=== PATIENT | female | born 1975 | race Two or more races ===

== ENCOUNTER → 2016-06-03 | Outpatient (CLI) | payer MEDICARE, OTHER ==
[~2016-06-03] MED LIST: ABILIFY10 MG ORAL; ABILIFY2 MG ORAL; CLOTRIMAZOLE15 GM TOPIC; IRON325 M2 PO; LEXAPRO10 MG ORAL; LEXAPRO5 MG ORAL; NKM
--- NOTE | 2016-06-03 13:51 | GI Initial Consult Note ---
History of Present Illness General Date patient seen: Jun 03, 2016 Time patient seen: 13:00 Referring physician: WOJCIECH HERMOSILLO Reason for Consultation: GERD EVALUATION Present Illness HPI 41 year old female patient referred to [facility] by Dr. Hermosillo for evaluation of atypical CP, PVD vs gastritis. Pt presents today with epigastric/substernal pain. No GI complaints at this time. Home Meds Active Scripts Clotrimazole* (LOTRIMIN*) 15 Gm Cream..g., 1 APPLIC TOPIC BID, #1 GM Prov:MICHAEL MACEDO 06/08/14 Reported Medications Aripiprazole* (ABILIFY*) 10 Mg Tablet, 10 MG ORAL DAILY, TAB 06/03/16 Escitalopram Oxalate (LEXAPRO) 5 Mg Tablet, 5 MG ORAL DAILY, TAB 06/03/16 No Known Medications* (NKM - No Known Medications*) ., 0 ., 0 Refills 06/08/14 Med list reviewed/reconciled: Yes Allergies: Coded Allergies: No Known Allergies (Unverified , 06/08/14) Patient History History Provided By: Patient PMH Narrative Depression Iron def anemia Past Surgical History: other - denies Family History Narrative denies Social History: Denies: alcohol use, drug use, other, smoking Social History Narrative coffee BID Review of Systems All Other Systems: negative except mentioned in HPI Physical Exam T 98.8 BP 117/73 P 73 100 RA Ht 5'4 WT 183 lbs Sp02 EP Interpretation: reviewed General Appearance: well appearing, no apparent distress, alert Head: normocephalic EENT: normal ENT inspection Neck: full range of motion, supple Respiratory: chest non-tender, lungs clear, normal breath sounds, no respiratory distress Cardiovascular: normal rate Gastrointestinal: non tender, normal bowel sounds Rectal: deferred Neurologic: normal inspection, alert, oriented x3, responsive Psychiatric: normal inspection, judgement/insight normal, memory normal Skin: normal inspection, normal color, no rash, warm/dry Lymphatic: normal inspection, no adenopathy GI: Plan Problems: (1) GERD (gastroesophageal reflux disease) (2) Encounter for diagnostic endoscopy (3) Iron deficiency anemia Plan EGD scheduled for May. - NPO @ [facility] prior day procedure instructed to patient. - pt refuses colonoscopy at this time labs to be drawn day of procedure; Iron panel, CEA, B12, Folate Seen with Dr. Shaw. Thank you for referring this kind patient. Marlin Gomez N.P. Jun 03, 2016 13:51
== END | disposition home or self-care (01) ==
LOC: PAN 13:05
DX: K21.9 Gastro-esophageal reflux disease without esophagitis (principal); D50.9 Iron deficiency anemia, unspecified
CPT/HCPCS: 99211

== ENCOUNTER → 2016-06-18 | Day surgery (SDC) | payer MEDICARE, OTHER ==
[2016-06-18] VITALS (8 sets, daily range): BP systolic 105–143; BP diastolic 57–77
[~2016-06-18] VITALS: Ht 162.6 cm; Wt 82.6 kg
[~2016-06-18] MED LIST changes: +LR 1000ml ONE; +Lidocaine 1% MPF 10mg/ml 5ml ONE; +Propofol 10mg/ml 20ml IV ONE
--- NOTE | 2016-06-18 11:32 | Pre-Procedure Note/Attestation ---
Pre-Procedure Note/Attestation Complete Prior to Procedure Planned Procedure: not applicable Procedure Narrative: egd Indications for Procedure Pre-Operative Diagnosis: anemia Attestation I attest that I discussed the nature of the procedure; its benefits; risks and complications; and alternatives (and the risks and benefits of such alternatives ), prior to the procedure, with the patient (or the patient's legal ocean import representative). I attest that, if there was a reasonable possibility of needing a blood transfusion, the patient (or the patient's legal ocean import representative) was given the [facility] standardized written summary, pursuant to the [place] Blood Safety Act ([place] Health and Safety Code # 1645, as amended). I attest that I re-evaluated the patient just prior to the surgery and that there has been no change in the patient's H&P, except as documented below: ROCIO DAO Jun 18, 2016 11:32
--- NOTE | 2016-06-18 11:33 | Short Stay Surgery H&P ---
History of Present Illness History of Present Illness Chief Complaint see recent consult note HPI Monica Romano is a 41 year old female who was admitted on for Abdominal Pain Patient History Allergies: Coded Allergies: No Known Allergies (Unverified , 06/08/14) PAST MEDICAL HISTORY: Past Surgeries: Social History: Medication History Scheduled Aripiprazole* (Abilify*), 2 MG ORAL DAILY, (Reported) Escitalopram Oxalate* (Lexapro*), 10 MG ORAL DAILY, (Reported) Ferrous Sulfate (Iron), 325 MG PO DAILY, (Reported) Physical Exam Vital Signs Last Vital Signs Date Time Temp Pulse Resp B/P Pulse Ox O2 Delivery O2 Flow Rate FiO2 06/18/16 10:59 98.5 54 18 107/57 100 Room Air Labs Laboratory Tests Test 06/18/16 09:50 06/18/16 11:20 Urine HCG, Qualitative Negative White Blood Count Pending Red Blood Count Pending Hemoglobin Pending Hematocrit Pending Mean Corpuscular Volume Pending Mean Corpuscular Hemoglobin Pending Mean Corpuscular Hemoglobin Concent Pending Red Cell Distribution Width Pending Platelet Count Pending Mean Platelet Volume Pending Neutrophils (%) (Auto) Pending Lymphocytes (%) (Auto) Pending Monocytes (%) (Auto) Pending Eosinophils (%) (Auto) Pending Basophils (%) (Auto) Pending Iron Level Pending Unsaturated Iron Binding Pending Carcinoembryonic Antigen Pending Vitamin B1 Level Pending Folate Pending Plan Attestation Are the patient's medical conditions optimized for surgery? ROCIO DAO Jun 18, 2016 11:33
[2016-06-18 11:35] LABS: BASOPHILS % (AUTO) 1.6 % (0.0-2.0); EOSINOPHILS % (AUTO) 2.5 % (0.0-3.0); LYMPHOCYTES % (AUTO) 23.8 % (20.0-45.0); MEAN CORPUSCULAR HEMOGLOBIN 32.3 PG (27.0-31.0); MEAN CORPUSCULAR HGB CONC 33.9 G/DL (32.0-36.0); MEAN CORPUSCULAR VOLUME 95 FL (80-99); MEAN PLATELET VOLUME 7.4 FL (6.5-10.1); MONOCYTES % (AUTO) 10.5 % (1.0-10.0); NEUTROPHILS % (AUTO) 61.6 % (45.0-75.0); PLATELET COUNT 294 K/UL (150-450); RED BLOOD COUNT 3.67 M/UL (4.20-5.40); RED CELL DISTRIBUTION WIDTH 11.2 % (11.6-14.8); WHITE BLOOD COUNT 4.8 K/UL (4.8-10.8)
--- NOTE | 2016-06-18 11:49 | Endoscopy Procedure Note ---
Endoscopy Procedure Note Indication for Procedure: gerd Procedures Performed: EGD Operative Findings/Diagnosis: gastritis Specimen: yes Pt Tolerated Procedure Well: Yes Estimated Blood Loss: none Anesthesiologist: nayeli Anesthesia: MAC Implant(s) used?: No 50 yrs or older w/o bx or poly: Not Applicable 10yrs. F/U not recommended: Not Applicable ROCIO DAO Jun 18, 2016 11:49
--- NOTE | 2016-06-18 12:01 | Immediate Post-Op Evaluation ---
Immediate Post-Op Evalulation Immediate Post-Op Evalulation Procedure: EGD Date of Evaluation: Jun 18, 2016 Time of Evaluation: 11:49 IV Fluids: 300 Blood Pressure Systolic: 107 Blood Pressure Diastolic: 68 Pulse Rate: 66 O2 Sat by Pulse Oximetry: 98 Temperature (Fahrenheit): 97.1 Nausea: No Vomiting: No Patient Status: awake, reacts, patent Hydration Status: adequate Drug: none NICANOR VASQUEZ CRNA Jun 18, 2016 12:01
--- NOTE | 2016-06-18 12:31 | 48 Hour Post Anesthesia Eval ---
Post Anesthesia Evaluation Procedure: EGD Date of Evaluation: Jun 18, 2016 Time of Evaluation: 12:31 Blood Pressure Systolic: 113 0: 68 Pulse Rate: 70 O2 Sat by Pulse Oximetry: 99 Airway: patent Nausea: No Vomiting: No Hydration Status: adequate Cardiopulmonary Status: normal Mental Status/LOC: patient returned to baseline Follow-up care needed: N/A NICANOR VASQUEZ CRNA Jun 18, 2016 12:31
--- NOTE | 2016-06-18 12:33 | Anethesia Preoperative Eval ---
Anesthesia Pre-op PMH/ROS General Date of Evaluation: Jun 18, 2016 Time of Evaluation: 11:30 Anesthesiologist: slim ASA Score: ASA 2 Mallampati Score Class I : Soft palate, uvula, fauces, pillars visible Class II: Soft palate, uvula, fauces visible Class III: Soft palate, base of uvula visible Class IV: Only hard plate visible Mallampati Classification: Class II Anesthesia History: none Family History: no anesthesia problems Allergies: Coded Allergies: No Known Allergies (Unverified , 06/08/14) Medications: see eMAR Past Medical History Cardiovascular: Denies: CAD, HTN, [place], arrhythmia, other, valve dz Pulmonary: Denies: COPD, VAL, asthma, other Neurologic/Psychiatric: Denies: CVA, TIA, dementia, depression/anxiety, other Endocrine: Denies: DM, hypothyroidism, other, steroids HEENT: Denies: [place] (L), [place] (R), cataract (L), cataract (R), glaucoma, other Hematology/Immune: Reports: anemia Anesthesia Pre-op Phys. Exam Physician Exam Last Vital Signs Date Time Temp Pulse Resp B/P Pulse Ox O2 Delivery O2 Flow Rate FiO2 06/18/16 12:01 66 98 06/18/16 12:00 16 109/77 Room Air 06/18/16 11:46 98.5 Neurologic: CN 2-12 intact Cardiovascular: RRR Respiratory: CTA Gastrointestinal: S/NT/ND Airway Exam Mallampati Classification 2 Mallampati Score: Class II MO: full ROM: full Dentures: no lower, no upper Anesthesia Pre-op A/P Labs Hematology Test 06/18/16 11:20 White Blood Count 4.8 K/UL (4.8-10.8) Red Blood Count 3.67 M/UL (4.20-5.40) L Hemoglobin 11.8 G/DL (12.0-16.0) L Hematocrit 34.9 % (37.0-47.0) L Mean Corpuscular Volume 95 FL (80-99) Mean Corpuscular Hemoglobin 32.3 PG (27.0-31.0) H Mean Corpuscular Hemoglobin Concent 33.9 G/DL (32.0-36.0) Red Cell Distribution Width 11.2 % (11.6-14.8) L Platelet Count 294 K/UL (150-450) Mean Platelet Volume 7.4 FL (6.5-10.1) Neutrophils (%) (Auto) 61.6 % (45.0-75.0) Lymphocytes (%) (Auto) 23.8 % (20.0-45.0) Monocytes (%) (Auto) 10.5 % (1.0-10.0) H Eosinophils (%) (Auto) 2.5 % (0.0-3.0) Basophils (%) (Auto) 1.6 % (0.0-2.0) Chemistry Test 06/18/16 11:20 Iron Level 42 ug/dL (37-145) Total Iron Binding Capacity 310 ug/dL (250-400) Percent Iron Saturation 14 % (15-50) L Unsaturated Iron Binding 268 ug/dL (112-346) Carcinoembryonic Antigen 1.8 ng/mL Vitamin B1 Level Pending Folate Pending Urine Test Test 06/18/16 09:50 Urine HCG, Qualitative Negative Studies Pre-op Studies: EKG - SR Risk Assessment & Plan Plan: mac Status Change Before Surgery: No Pre-Antibiotics Drug: none NICANOR VASQUEZ CRNA Jun 18, 2016 12:32
--- NOTE | 2016-06-18 21:38 | Procedure Note ---
DATE OF PROCEDURE: 06/18/2016 SURGEON: Sam Lakhani M.D. ANESTHESIA: Per ENGINE RESEARCH ENGINEER, Jenn Packer. PROCEDURE: Upper endoscopy with biopsy. INSTRUMENT: Olympus adult flexible upper endoscope. INDICATION: GERD. REASON FOR PROCEDURE: The procedure, risks, benefits, and possible consequences, including hemorrhage, aspiration, perforation and infection, and alternative treatments, were explained to the patient/legal guardian by Dr. Sam Shaw and the patient/legal guardian understood and accepted these risks. PROCEDURE: After informed consent was obtained and the patient was adequately sedated, Olympus upper endoscope was advanced from the mouth into the second portion of the duodenum and retroflexion was performed in the stomach. The patient has some diffuse severe atrophic gastritis. Biopsy from body and antrum was obtained to rule out H. pylori infection. Otherwise, the rest of the examination was within normal limits. The patient tolerated the procedure without any complication. IMPRESSION: Diffuse atrophy gastritis status post biopsy of the body and antrum. RECOMMENDATIONS: Follow up biopsies and treat accordingly. We will also finally send serology for H. pylori. Sam Shaw M.D. DR: Drew JOB#: [id number] CC:
== END | disposition home or self-care (01) ==
LOC: GAS 08:17
DX: K29.40 Chronic atrophic gastritis without bleeding (principal); K21.9 Gastro-esophageal reflux disease without esophagitis; D64.9 Anemia, unspecified
CPT/HCPCS: 36415; 43239; 81025; 82378; 83540; 83550; 85025; J2704; J7120; 82746; 84425; 94003; 94150

== ENCOUNTER → 2016-07-01 | Outpatient (CLI) | payer MEDICARE, OTHER ==
[~2016-07-01] MED LIST changes: -LR 1000ml ONE; -Lidocaine 1% MPF 10mg/ml 5ml ONE; -Propofol 10mg/ml 20ml IV ONE
[2016-07-01 13:37] VITALS: BP 148/74
--- NOTE | 2016-07-01 14:07 | GI Progress Note ---
Assessment/Plan Problems: (1) Iron deficiency anemia ICD Codes: D50.9 - Iron deficiency anemia, unspecified SNOMED: 68205377 (2) Depression ICD Codes: F32.9 - Major depressive disorder, single episode, unspecified SNOMED: 14138147 (3) GERD (gastroesophageal reflux disease) ICD Codes: K21.9 - Gastro-esophageal reflux disease without esophagitis SNOMED: 168552407 (4) Encounter for diagnostic endoscopy ICD Codes: Z01.818 - Encounter for other preprocedural examination SNOMED: 722316415, 843662228 Status: stable Status Narrative Seen with Dr. Shaw. Assessment/Plan EGD reviewed with patient. fu biopsy result >> HP negative RTC prn Subjective Gastrointestinal/Abdominal: Reports: no symptoms Objective Last 24 Hour Vital Signs Date Time Temp Pulse Resp B/P Pulse Ox O2 Delivery O2 Flow Rate FiO2 07/01/16 13:37 99.0 82 16 148/74 General Appearance: no apparent distress, alert Cardiovascular: normal rate, regular rhythm Respiratory/Chest: normal breath sounds, no respiratory distress, no accessory muscle use Abdominal Exam: normal bowel sounds, non tender, soft Extremities: normal range of motion Objective DATE OF PROCEDURE: 06/18/2016 SURGEON: Sam Lakhani M.D. INDICATION: GERD. REASON FOR PROCEDURE: The procedure, risks, benefits, and possible consequences, including hemorrhage, aspiration, perforation and infection, and alternative treatments, were explained to the patient/legal guardian by Dr. Sam Shaw and the patient/legal guardian understood and accepted these risks. PROCEDURE: After informed consent was obtained and the patient was adequately sedated, Olympus upper endoscope was advanced from the mouth into the second portion of the duodenum and retroflexion was performed in the stomach. The patient has some diffuse severe atrophic gastritis. Biopsy from body and antrum was obtained to rule out H. pylori infection. Otherwise, the rest of the examination was within normal limits. The patient tolerated the procedure without any complication. IMPRESSION: Diffuse atrophy gastritis status post biopsy of the body and antrum. RECOMMENDATIONS: Follow up biopsies and treat accordingly. We will also finally send serology for H. pylori. Marlin Gomez N.P. Jul 01, 2016 14:07
== END | disposition home or self-care (01) ==
LOC: PAN 13:27
DX: Z01.818 Encounter for other preprocedural examination (principal); D50.9 Iron deficiency anemia, unspecified; F32.9 Major depressive disorder, single episode, unspecified; K21.9 Gastro-esophageal reflux disease without esophagitis; K29.40 Chronic atrophic gastritis without bleeding
CPT/HCPCS: 99211

== ENCOUNTER 2018-08-30 13:54 | Emergency (ER) | payer MEDICARE, OTHER ==
[~2018-08-30] VITALS: Ht 167.6 cm; Wt 68.0 kg
[2018-08-30] MEDS ORDERED: CEPHALEXIN500 MG ORAL (14:11)
--- NOTE | 2018-08-30 14:21 | NUR ---
ED Nurse Note: PT WALKED IN TO ER TODAY FROM HOME. AOX4. PT C/O LEFT BREAST BUMP X 1 WEEK AGO. PT STATES SHE WAS DIAGNOSED WITH MASTITIS AND COMPLETED HER KEFLEX REGIMEN. PT DENIES ANY PAIN AND ALSO DENIES DISCHARGE OR BLEEDING FROM NIPPLES.
[2018-08-30 14:23] VITALS: BP 108/68
--- NOTE | 2018-08-30 14:34 | Emergency Room Report ---
History of Present Illness General Chief Complaint: Skin Rash/Abscess Source: Patient Present Illness HPI 43-year-old female with no significant past medical history here complaining of minimal pain in her left breast. Patient reports that pain 10 days ago she went to a different hospital was diagnosed with mastitis and was given Keflex. Patient is currently not breast-feeding. She finished a course of the antibiotic treatment however complains of a small mass left at the site of the infection rating the pain 2 out of 10 without radiation. Mammogram done a year ago and reports that it was normal. Patient denies pain radiation, swelling of the left breast, chest pain, fever and chills. Denies nipple discharge, pus drainage from the breast, S OB, abdominal pain nausea vomiting. Patient has not taken any medication for pain nor swelling Allergies: Coded Allergies: No Known Allergies (Unverified , 06/08/14) Patient History Past Medical History: see triage record Past Surgical History: unable to obtain Pertinent Family History: none Last Menstrual Period: 08/05/18 Now: No Immunizations: UTD Reviewed Nursing Documentation: PMH: Agreed; PSxH: Agreed Nursing Documentation-PMH Hx Cardiac Problems: No Hx Cancer: No Hx Gastrointestinal Problems: No History Of Psychiatric Problem: Yes - depression Hx Neurological Problems: No Review of Systems All Other Systems: negative except mentioned in HPI Physical Exam Vital Signs Date Time Temp Pulse Resp B/P (MAP) Pulse Ox O2 Delivery O2 Flow Rate FiO2 08/30/18 14:05 98.1 88 16 104/67 (79) 99 Room Air Sp02 EP Interpretation: reviewed, normal General Appearance: normal inspection, well appearing, no apparent distress Head: normocephalic, atraumatic Eyes: bilateral eye normal inspection, bilateral eye PERRL ENT: normal ENT inspection, hearing grossly normal, normal pharynx Neck: normal inspection, full range of motion, supple Respiratory: normal inspection, chest non-tender, lungs clear, no rhonchi, no wheezing Cardiovascular #1: normal inspection, regular rate, rhythm, no edema, no murmur Gastrointestinal: normal inspection, non tender, soft Rectal: deferred Genitourinary: normal inspection, no CVA tenderness Musculoskeletal: normal inspection, back normal, digits/nails normal Neurologic: normal inspection, alert, oriented x3 Psychiatric: normal inspection, judgement/insight normal Skin: no rash, warm/dry, other - mobile mass left breast at 12 O clock, not infected, no pus drainage, no nipple discharge Lymphatic: normal inspection, no adenopathy Medical Decision Making PA Attestation All my diagnosis and treatment plans were reviewed ad discussed with my supervising physician Dr. Figueroa Diagnostic Impression: Primary Impression: Left breast mass ER Course 43-year-old female with no significant past medical history here complaining of minimal pain in her left breast. Patient reports that pain 10 days ago she went to a different hospital was diagnosed with mastitis and was given Keflex. Patient is currently not breast-feeding. She finished a course of the antibiotic treatment however complains of a small mass left at the site of the infection rating the pain 2 out of 10 without radiation. Mammogram done a year ago and reports that it was normal. Patient denies pain radiation, swelling of the left breast, chest pain, fever and chills. Denies nipple discharge, pus drainage from the breast, S OB, abdominal pain nausea vomiting. Patient has not taken any medication for pain nor swell Ddx considered but are not limited to: Mastitis, breast cyst, breast abscess Vital signs: are WNL, pt. is afebrile H&PE are most consistent with noninfected breast mass ORDERS: Naproxen ED INTERVENTIONS: None required at this time. DISCHARGE: At this time pt. is stable for d/c to home. Will provide printed patient care instructions, and any necessary prescriptions. Care plan and follow up instructions have been discussed with the patient prior to discharge. Follow-up with your primary care provider for breast ultrasound and also mammogram, no sign of further infection noted the swelling of the affected area can take weeks to subside take medication as directed and lifting heavy objects with the affected side Last Vital Signs Date Time Temp Pulse Resp B/P (MAP) Pulse Ox O2 Delivery O2 Flow Rate FiO2 08/30/18 14:23 98.2 82 17 108/68 100 Room Air Disposition: HOME, SELF-CARE Condition: Stable Scripts Naproxen* (NAPROXEN*) 500 Mg Tablet 500 MG ORAL TWICE A DAY, #15 TAB Prov: Parmjit Soria 08/30/18 Patient Instructions: Breast Cyst Additional Instructions: See primary care provider for follow-up and also ultrasound of the breast no signs of infection is noted anymore however take naproxen for the pain possible cyst still exist inside the breast but no drainage needed as it is hurting and you have already finished a course of antibiotics Parmjit Soria Aug 30, 2018 14:34
[2018-08-30] MEDS ORDERED: NAPROXEN500 M2 ORAL (14:35)
--- NOTE | 2018-08-30 14:40 | NUR ---
ED Nurse Note: PT SITTING PEACEFULLY IN BED IN NAD. AOX4. PRESCRIPTION AND DISCHARGE PAPERWORK EXPLAINED TO PT. PT VERBALIZES UNDERSTANDING AND ALL QUESTIONS ANSWERED. PRESCRIPTIONS AND DISCHARGE PAPERWORK GIVEN TO PT AND ID WRISTBAND REMOVED. PT WALKED OUT OF ER WITH STEADY GAIT AND ALL BELONGINGS.
[2018-08-30 14:41] VITALS: BP 110/72
== END 2018-08-30 14:45 | disposition home or self-care (01) ==
LOC: EMR 14:45
DX: N63.20 Unspecified lump in the left breast, unspecified quadrant (principal); F32.9 Major depressive disorder, single episode, unspecified
CPT/HCPCS: 99282